=== PATIENT | female | born 1960 | race African-American/Black ===

== ENCOUNTER 2019-03-11 13:02 | Emergency (ER) | payer MEDICAID, OTHER ==
[~2019-03-11] VITALS: Ht 152.4 cm; Wt 65.8 kg
[2019-03-11 14:40] VITALS: BP 121/86
== END 2019-03-11 15:11 | disposition home or self-care (01) ==
LOC: ER 13:02
DX: J18.9 Pneumonia, unspecified organism (principal); E11.9 Type 2 diabetes mellitus without complications; F12.90 Cannabis use, unspecified, uncomplicated
CPT/HCPCS: 71046